=== PATIENT | female | born 1990 | race Caucasian/White ===

== ENCOUNTER 2016-08-26 17:14 | Emergency (ER) | payer BC ==
[~2016-08-26] VITALS: Ht 170.2 cm; Wt 68.2 kg
[2016-08-26 17:18] VITALS: TEMP 98.3
[2016-08-26 20:32] LABS: PH 5 (5-8); URINE APPEARANCE Hazy; URINE BACTERIA None Seen /hpf; URINE BILIRUBIN Negative (NEGATIVE); URINE BLOOD Negative (NEGATIVE); URINE COLOR Yellow; URINE GLUCOSE Negative (NEGATIVE); URINE KETONE Negative (NEGATIVE); URINE RBC 0-2 /hpf; URINE UROBILINOGEN Negative (NEGATIVE)
[2016-08-26] MEDS ORDERED: NORCO 325 MG-51 TAB PO (20:51)
[2016-08-26 21:16] VITALS: BP 130/68; PULSE 73
== END 2016-08-26 21:15 | disposition home or self-care (01) ==
LOC: COL.ER 17:14
PROVIDERS: Nurse Practitioner
DX: M54.5 Low back pain (principal); G89.29 Other chronic pain; M62.830 Muscle spasm of back
CPT/HCPCS: J1885; J2360